=== PATIENT | male | born 1990 | race Caucasian/White ===

== ENCOUNTER 2024-07-28 13:41 | Emergency (ER) | payer BC, SELFPAY ==
[2024-07-28 13:51] VITALS: BP 137/86
[2024-07-28 14:07] LABS: % Basophils 0.6 % (0-2); % Eosinophils 3.1 % (0-6); % Immature Granulocytes 0.2 % (0-0.5); % Lymphocytes 44.4 % (20.5-51.1); % Monocytes 9.2 % (1.7-9.3); % Neutrophils 42.5 % (42.2-75.2); Absolute Eosinophils 0.2 10^3/uL (0-0.7); Absolute Lymphocytes 2.3 10^3/uL (1.2-3.4); Absolute Monocytes 0.5 10^3/uL (0.1-0.6); Absolute Neutrophils 2.2 10^3/uL (1.4-6.5); Hematocrit 39.4 % (39.0-52.0); Hemoglobin 14.3 g/dL (13.0-18.0); Mean Corp Hgb Conc. 36.3 g/dL (33.0-37.0); Mean Corpuscular Hgb 30.2 pg (27.0-31.0); Mean Corpuscular Volume 83.3 fL (80.0-94.0); Mean Platelet Volume 8.8 fL (7.4-10.4); Nucleated Red Blood Cells % 0 % (-); Platelet Count 252 10^3/uL (130-400); Red Blood Cell Count 4.73 10^6/uL (4.70-6.10); Red Cell Dist. Width 12.1 % (11.5-14.5); White Blood Cell Count 5.1 10^3/uL (4.8-10.8)
[2024-07-28 14:24] LABS: ALT (SGPT) 23 U/L (0-50); AST (SGOT) 24 U/L (17-59); Albumin 5.1 g/dl (3.5-5.0); Alkaline Phosphatase 58 U/L (38-126); Blood Urea Nitrogen 23 mg/dl (9-20); Calcium 9.4 mg/dl (8.4-10.2); Carbon Dioxide 27 mmol/L (22-30); Chloride 102 mmol/L (98-107); Glucose 91 mg/dl (70-99); Potassium 4.5 mmol/L (3.5-5.1); Sodium 140 mmol/L (135-145); Total Protein 7.1 g/dl (6.3-8.2); eGFR > 60.00
[2024-07-28 16:00] VITALS: BP 127/78
--- NOTE | 2024-07-28 16:34 | ED.GENMED ---
History of Present Illness
General
Chief Complaint: Rectal Bleeding
Source: patient
Exam Limitations: none
Time Seen by Provider: 07/28/24 16:15
History of Present Illness
History of Present Illness:
33-year-old male 3-4 episodes of the last few days of bright red blood per rectum. Brief episode 1 month ago in [place]. No rectal pain stool is normal. No black or tarry stool. No abdominal pain nausea vomiting. No NSAID use or significant
alcohol use. Patient feels fine. Last episode was this morning. He had a bowel movement this afternoon that was unremarkable
Past History
Past History
ED Past Medical History: None
ED Past Surgical History: None
Social History
Tobacco: Former smoker
Alcohol: Occasional
Drug: Narcotics
Personal: Single
Living: with family
Review of Systems
Review of Systems
All Other Systems: Not applicable
Constitutional: Denies fatigue
ABD/GI: Denies abdominal pain, diarrhea or black stools
Phy Exam
Physical Exam
Physical Exam:
GENERAL: Alert and oriented in no apparent distress
EYE: Orbits normal.
NECK: Supple
CARDIAC: Regular rate and rhythm without any obvious murmurs.
LUNGS: Clear breath sounds,normal
ABDOMEN: Soft, without focal tenderness or distention. Rectal exam with small noninflamed external hemorrhoids. No active bleeding. No external blood. No fissure. Rectal exam is unremarkable. There is no stool or blood in the fingertip.
Tested negative at this time. But again very little material on the for
NEUROLOGICAL: Alert and oriented , grossly non-focal
SKIN: Warm and dry
PSYCH: Normal and appropriate interaction.
Course
Orders/Labs/Results
Orders:
Orders
07/28/24 13:58
Type And Crossmatch [Type+Screen] Urgent
CBC/With Diff [Complete Blood Count/With Diff] Urgent
Comprehensive Metabolic Panel Urgent
Abnormal Lab Results
07/28/24
13:58
BUN 23 H mg/dl
(9-20)
Albumin 5.1 H g/dl
(3.5-5.0)
07/28/24 13:58
07/28/24 13:58
Vital Signs
Initial and Last Documented VS:
Initial Vital Signs
Temp Pulse Resp BP Pulse Ox
97.4 F 76 16 137/86 98
07/28/24 13:51 07/28/24 13:51 07/28/24 13:51 07/28/24 13:51 07/28/24 13:51
Last Documented Vital Signs
Temp Pulse Resp BP Pulse Ox
97.9 F 64 16 127/78 100
07/28/24 16:00 07/28/24 16:00 07/28/24 16:00 07/28/24 16:00 07/28/24 16:00
MDM/Problems Addressed
Differential Diagnosis Includes:
Recurrent bright red blood per rectum. With normal stools. No risk factors for more serious etiology. Clinically stable. Stable vital signs. Stable exam. No significant bleeding currently. Stable hemoglobin. Very reasonable for close
outpatient follow-up.
*Pulse Oximetry
Patient hypoxic: no
*Critical Care Note
Total Time (30-74mins, 75-104mins- exclusive of procedures): Not Applicable
Update Note
Update Note:
Contacted [facility] front desk [facility]. They will contact him in the morning
ED Attending Note
-
Portions of this chart may have been created with voice recognition software.� Occasional wrong word or��sound alike� substitutions may have occurred due to the inherent limitations of voice recognition software.
Discharge Plan
Departure
Patient Disposition: Home (Routine Discharge)
Date of Disposition: 07/28/24
Time of Disposition: 17:13
Patient with high blood pressure during this ER visit?: Yes
Discharge Problem:
Lower GI bleed
Instructions: Gastrointestinal Bleeding (DC), BLOOD PRESSURE
Referrals:
Sohail Thompson MD [Active] - Follow up in 2-3 days
Activity Restrictions/Additional Instructions:
The gastrointestinal group should call you in the morning. If they have not called by late morning please call them
Interventions
Interventions:
*Risk Screen - Suicide Last Done: 07/28/24 13:51
*Neglect/Abuse Screening Last Done: 07/28/24 13:51
ED- Fall Risk Assessment Last Done: 07/28/24 17:55
*Nursing Disposition Last Done: 07/28/24 17:56
DS-Mvbmjs-Gfluhdysdl Assessment Last Done: 07/28/24 17:55
ED- Cardiac Assessment Last Done: 07/28/24 17:55
ED- Pulmonary Assessment Last Done: 07/28/24 17:55
Discharge Date and Time
Discharge Date/Time: 07/28/24 17:56
Print Language: POLISH
== END 2024-07-28 17:56 | disposition home or self-care (01) ==
LOC: EMR 13:41
PROVIDERS: Emergency Medicine; EMERGENCY PHYSICIAN Emergency Medicine
DX: K92.2 Gastrointestinal hemorrhage, unspecified (principal); Z87.891 Personal history of nicotine dependence
CPT/HCPCS: 99283; 80053; 85025; 86850; 86900; 86901

== ENCOUNTER 2024-08-25 06:24 | Day surgery (SDC) | payer BC, SELFPAY | END 2024-08-25 16:56 | disposition home or self-care (01) | LOC: GI 06:24 | PROVIDERS: ATTENDING PHYSICIAN Internal Medicine Gastroenterology | DX: K62.5 Hemorrhage of anus and rectum (principal); K64.8 Other hemorrhoids | CPT/HCPCS: 45378 ==